=== PATIENT | female | born 1990 | race Caucasian/White ===

== ENCOUNTER 2017-06-10 05:48 | Day surgery (SDC) | payer OTHER ==
[~2017-06-10] VITALS: Ht 157.5 cm; Wt 67.7 kg
[~2017-06-10 05:48] MED LIST: PRIL40 PO; ZANTAC 150MG T150 MG PO
[2017-06-10 06:35] LABS: BASO % 0.7 % (0.0-2.0); EOS # 0.1 (0.0-0.7); EOS % 2.1 % (0-4.0); GRAN # 2.1 (1.4-6.5); GRAN % 50.2 % (42.2-75.2); HEMOGLOBIN 12.1 g/dl (12.5-16.0); LYMPH # 1.6 (1.2-3.4); LYMPH % 37.2 % (20.0-51.0); MEAN CELL VOLUME 85 fl (80.0-100.0); MEAN CORPUSCULAR HEMOGLOBIN 29 pg (27.0-31.0); MEAN CORPUSCULAR HGB CONC 34 g/dl (33.0-37.0); MEAN PLATELET VOLUME 10.4 fl (7.4-10.4); MONO # 0.4 (0.1-0.6); MONO % 9.6 % (1.7-9.3); PLATELET COUNT 177 K/mm3 (130-400); RED BLOOD COUNT 4.23 M/mm3 (4.10-5.30); REDCELL DISTRIBUTION WIDTH-CV 15.4 % (11.5-14.5); WHITE BLOOD COUNT 4.3 K/mm3 (4.8-10.8)
[2017-06-10 06:36] LABS: HEMATOCRIT 36.1 % (37.0-47.0)
[2017-06-10 06:44] VITALS: BP 103/69; PULSE 73; TEMP 97.8
[2017-06-10 06:45] LABS: PH 5 (5-8); URINE APPEARANCE Clear; URINE BACTERIA None Seen /hpf; URINE BILIRUBIN Negative (NEGATIVE); URINE BLOOD 3+ (NEGATIVE); URINE COLOR Yellow; URINE GLUCOSE Negative (NEGATIVE); URINE KETONE Negative (NEGATIVE); URINE RBC 20-50 /hpf; URINE UROBILINOGEN Negative (NEGATIVE)
[2017-06-10] MEDS ORDERED: FERREX 150150 MG PO (06:57)
[2017-06-10] MEDS ORDERED: PRENATAL PO (06:57)
[2017-06-10] MEDS ORDERED: TYLENOL W/COD1 UDTAB PO ×2 (08:16→08:22)
[2017-06-10] MEDS ORDERED: METHERGINE0.2 MG/TAB PO (08:17)
[2017-06-10] MEDS ORDERED: AMOXICILLIN 8751 TAB PO (08:17)
[2017-06-10 08:18] VITALS: BP 117/74; PULSE 69
[2017-06-10 08:33] VITALS: BP 106/57; PULSE 61
[2017-06-10 08:48] VITALS: BP 103/54; PULSE 57
[2017-06-10 09:03] VITALS: BP 108/69; PULSE 64
[2017-06-10 09:18] VITALS: BP 109/56; PULSE 56
== END 2017-06-10 09:53 | disposition home or self-care (01) ==
LOC: SDCO 05:48
PROVIDERS: Student in an Organized Health Care Education/Training Program
DX: O72.2 Delayed and secondary postpartum hemorrhage (principal); O34.219 Maternal care for unspecified type scar from previous cesarean delivery; K21.9 Gastro-esophageal reflux disease without esophagitis; D64.9 Anemia, unspecified; Z80.41 Family history of malignant neoplasm of ovary; Z87.891 Personal history of nicotine dependence
CPT/HCPCS: J1885; J2210; J2405; J2704; J3010; J7120

== ENCOUNTER 2017-06-25 21:40 | Emergency (ER) | payer OTHER ==
[~2017-06-25] VITALS: Ht 157.5 cm; Wt 67.3 kg
[~2017-06-25 21:40] MED LIST changes: +AMOXICILLIN 8751 TAB PO; +FERREX 150150 MG PO; +METHERGINE0.2 MG/TAB PO; +PRENATAL PO; +TYLENOL W/COD1 UDTAB PO
[2017-06-25 21:41] VITALS: TEMP 97.8
[2017-06-25 22:05] LABS: HEMOGLOBIN 12.4 g/dl (12.5-16.0)
[2017-06-25 22:06] LABS: HEMATOCRIT 35.9 % (37.0-47.0)
[2017-06-25 22:25] LABS: CREATININE, serum 0.88 mg/dL (0.52-1.25); POTASSIUM 3.6 mmol/L (3.4-5.0)
[2017-06-26 00:29] VITALS: BP 115/60; PULSE 75
== END 2017-06-26 00:30 | disposition home or self-care (01) ==
LOC: COL.ER 21:40
PROVIDERS: Emergency Medicine
DX: R00.2 Palpitations (principal); K21.9 Gastro-esophageal reflux disease without esophagitis; Z87.891 Personal history of nicotine dependence